=== PATIENT | male | born 1990 | race Caucasian/White ===

== ENCOUNTER 2017-08-08 23:51 | Emergency (ER) | payer BC, SELFPAY ==
[2017-08-09] MEDS ORDERED: Ibuprofen 800 MG TAB ONE (00:05)
== END 2017-08-09 00:09 | disposition home or self-care (01) ==
LOC: BURERS 23:51
DX: H66.91 Otitis media, unspecified, right ear (principal); F17.210 Nicotine dependence, cigarettes, uncomplicated
CPT/HCPCS: 99282